=== PATIENT | male | born 1985 | race Caucasian/White ===

== ENCOUNTER 2016-08-31 14:53 | Emergency (ER) | payer BC, OTHER ==
[2016-08-31 14:57] VITALS: BP 136/88; RESP 18
[2016-08-31] MEDS ORDERED: HYDROcodone/APAP 5-325MG 1 EACH TAB PO STA (15:12)
[2016-08-31] MEDS ORDERED: KETOROLAC 60 MG/2 ML VIAL IM STA (15:12)
[2016-08-31] MEDS ORDERED: DIAZEPAM 5 MG TAB PO STA (15:12)
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
--- NOTE | 2016-08-31 16:17 | XR ---
EXAMINATION TYPE: XR shoulder complete BILAT DATE OF EXAM: 08/31/2016 COMPARISON: NONE HISTORY: Pain and injury TECHNIQUE: 6 views FINDINGS: I see no fracture nor dislocation. Joint spaces are normal. There are no pathologic calcifi cations. IMPRESSION: Normal bilateral shoulder exam.
--- NOTE | 2016-08-31 16:18 | XR ---
EXAMINATION TYPE: XR wrist complete BILATERAL DATE OF EXAM: 08/31/2016 COMPARISON: NONE HISTORY: Pain and injury TECHNIQUE: 8 views FINDINGS: I see no fracture nor dislocation. Joint spaces are normal. There are no pathologic calcifi cations. IMPRESSION: Normal bilateral wrist exam.
--- NOTE | 2016-08-31 16:20 | XR ---
EXAMINATION TYPE: XR elbow complete bilateral DATE OF EXAM: 08/31/2016 COMPARISON: NONE HISTORY: Pain and injury TECHNIQUE: 6 views FINDINGS: There is evidence for bilateral elbow joint effusions. There is no dislocation. There is sl ight deformity of the neck of the left radial head consistent with nondisplaced fracture. IMPRESSION: Elbow joint effusions. Nondisplaced fracture of the neck of the left radial head. I suspe ct an occult fracture also of the neck of the right radial head.
[2016-08-31 16:58] VITALS: PULSE 77; TEMP 98.3
--- NOTE | 2016-09-02 09:14 | CDI ---
Documentation Clarification OP Dear Dr. Rachel Fisher Please do addendum to ED report that provides type of splint applied to bilateral upper extremeties. Thank you, Cassie Caz[employer] If you have any questions, please contact [employer] at [phone] [facility]
== END 2016-08-31 16:58 | disposition home or self-care (01) ==
LOC: EC 14:53
DX: S52.121A Displaced fracture of head of right radius, initial encounter for closed fracture (principal); S52.122A Displaced fracture of head of left radius, initial encounter for closed fracture; Z79.899 Other long term (current) drug therapy; V18.4XXA Pedal cycle driver injured in noncollision transport accident in traffic accident, initial encounter
CPT/HCPCS: 29105; 99284

== ENCOUNTER 2018-04-23 08:35 | Emergency (ER) | payer BC ==
[2018-04-23 08:42] VITALS: BP 132/85; PULSE 100; RESP 18; TEMP 99.1
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
--- NOTE | 2018-04-23 10:00 | XR ---
EXAMINATION TYPE: XR shoulder complete RT DATE OF EXAM: 04/23/2018 COMPARISON: 08/31/2016 HISTORY: Pain TECHNIQUE: Shoulder examined in 3 views. FINDINGS: The humeral head articulates with the glenoid. The acromio-clavicular junction is normal. No acute fractures or dislocations are evident. A follow up study can be performed 7-10 days from acute trauma for continued pain. IMPRESSION: 1. Normal Shoulder
== END 2018-04-23 09:37 | disposition home or self-care (01) ==
LOC: EC 08:35
DX: S46.811A Strain of other muscles, fascia and tendons at shoulder and upper arm level, right arm, initial encounter (principal); Z91.011 Allergy to milk products; Z91.012 Allergy to eggs; V19.9XXA Pedal cyclist (driver) (passenger) injured in unspecified traffic accident, initial encounter; Y93.55 Activity, bike riding
CPT/HCPCS: 99283